=== PATIENT | female | born 1975 ===

== ENCOUNTER 2025-01-19 18:53 | Emergency (ER) | payer SELFPAY ==
[2025-01-19 19:03] VITALS: BP 119/59; PULSE 73; RESP 20; TEMP 36.7; O2SAT 98; BMI 28.3
--- NOTE | 2025-01-19 19:20 | PC.NURSE ---
Pt seen by Dr nichols in Triage.
--- NOTE | 2025-01-19 19:20 | ED.ANXIETY ---
HPI - Anxiety General Chief Complaint: Anxiety Stated Complaint: anxiety/panic attacks - out of meds Time Seen by Provider: 01/19/25 19:20 Mode of arrival: Ambulatory History of Present Illness HPI narrative: 49-year-old woman with a history of anxiety disorder currently on hydroxyzine 100 mg, buspirone 15 mg and trazodone 300 mg all at night. She recently has lost her insurance has not been able to reestablish care and can not get into a primary care physician nor walk-in clinic and continues to be referred to the ER. She has been out of medications for the last 2 weeks with increasing anxiety and is simply requesting help with refills. She is applying to all appropriate programs for medical care at this time. No complaint of depression or suicidal ideation. She presents with her . Related Data Home Medications ?Medication ?Instructions ?Recorded ?Confirmed clonazepam 0.5 mg tablet 1 mg PO TIDP ##0 10/18/11 hydroxyzine HCl 25 mg tablet 25 mg TID ##0 10/18/11 trazodone 50 mg tablet 150 mg PO HS ##0 10/18/11 Previous Rx's ?Medication ?Instructions ?Recorded cyclobenzaprine 5 mg tablet 5 mg PO Q8HP PRN #10 tabs 07/09/16 hydrocodone 5 mg-acetaminophen 325 1 tab PO Q6HP PRN #10 tabs 07/09/16 mg tablet ([place]) buspirone 15 mg tablet 15 mg PO TID #270 tabs 01/19/25 hydroxyzine pamoate 100 mg capsule 100 mg PO QID PRN anxiety #360 caps 01/19/25 trazodone 300 mg tablet 300 mg PO BEDTIME #90 tabs 01/19/25 Allergies Allergy/AdvReac Type Severity Reaction Status Date / Time risperidone Allergy Severe Anaphylaxis Verified 01/19/25 19:05 venlafaxine Allergy Verified 01/19/25 19:05 quetiapine (From Seroquel) AdvReac Verified 01/19/25 19:05 From VICOPROFEN Allergy Mild ONLY IN Uncoded 01/19/25 19:05 COMBINATION,CAN TAKE SEPARATELY Review of Systems Review of Systems Narrative: Pertinent positive and negative findings as per HPI Patient History Medical History Generalized anxiety disorder Smoking Status: Current every day smoker tobacco type: vaping Exam Initial Vital Signs Initial Vital Signs: Vital Signs Temperature 98.0 F 01/19/25 19:03 Pulse Rate 73 01/19/25 19:03 Respiratory Rate 20 01/19/25 19:03 Blood Pressure 119/59 L 01/19/25 19:03 Pulse Oximetry 98 01/19/25 19:03 Oxygen Delivery Method Room Air 01/19/25 19:03 General: Alert, visibly anxious but able to focus and cooperate Respiratory: Able to speak in full sentences, no obvious respiratory distress Skin: No obvious rashes, warm and dry Neurologic: Grossly intact no obvious asymmetries or abnormalities Psych: appropriate insight, anxious and clearly frustrated with lack of access to overall care Course Vital Signs Vital signs: Vital Signs - 8 hr 01/19/25 19:03 Temperature 98.0 F Pulse Rate 73 Respiratory Rate 20 Blood Pressure 119/59 L Pulse Oximetry 98 Oxygen Delivery Method Room Air MDM - Anxiety MDM Narrative Medical decision making narrative: 49-year-old woman history of generalized anxiety disorder has been out of medications for the last 2 weeks because she has lost her insurance and can not get into primary care, I was told she had to pay for her visit in front at urgent care and both of those options suggested she come to the ER. She is requesting medication refills of her hydroxyzine BuSpar and trazodone. She is given nighttime doses of each of these and prescriptions to last until she is able to establish with a new primary care physician given. At this time there was no indication for further workup, hospitalization or any type of imaging studies. Questions are answered and she is safe for discharge Discharge Plan Departure Patient Disposition: Home Clinical Impression: Generalized anxiety disorder, Medication refill Instructions: DI for Anxiety -- Adult Activity Restrictions/Additional Instructions: I am sorry that you are having so much difficulty refilling your prescriptions. It sounds like you are doing all of the right things to get back to medical insurance to get back into a primary care physician. I know how frustrating this can be. I have given you refills of your hydroxyzine buspirone and trazodone. Prescriptions were sent to [facility] in [place] If you find that you are getting worse or have new issues please do return to the emergency department Prescriptions: New trazodone 300 mg tablet 300 mg PO BEDTIME Qty: 90 1RF hydroxyzine pamoate 100 mg capsule 100 mg PO QID PRN (Reason: anxiety) Qty: 360 1RF buspirone 15 mg tablet 15 mg PO TID Qty: 270 1RF No Action trazodone 50 MG tablet 150 mg PO HS Qty: 0 clonazepam 0.5 MG tablet 1 mg PO TIDP Qty: 0 hydroxyzine HCl 25 MG tablet 25 mg TID Qty: 0 hydrocodone-acetaminophen [[place]] 5 MG/325 MG tablet 1 tab PO Q6HP PRNQty: 10 0RF cyclobenzaprine 5 MG tablet 5 mg PO Q8HP PRNQty: 10 0RF Stand Alone Forms: Patient Portal/API
== END 2025-01-19 19:45 | disposition home or self-care (01) ==
PROVIDERS: Emergency Provider Emergency Medicine
DX: F41.1 Generalized anxiety disorder (principal); Z76.0 Encounter for issue of repeat prescription
CPT/HCPCS: 99283; A9270